=== PATIENT | female | born 1955 | race Caucasian/White ===

== ENCOUNTER 2017-03-02 17:43 | Emergency (ER) | payer OTHER ==
[2017-03-02 18:06] VITALS: BP 184/72
--- NOTE | 2017-03-02 18:39 | EDM.PDOC ---
ED HPI GENERAL MEDICAL PROBLEM - General Chief Complaint: Genitourinary Problem Stated Complaint: UNABLE TO URINATE Time Seen by Provider: 03/02/17 18:19 Source of Information: Reports: Patient, RN Notes Reviewed History Limitations: Reports: No Limitations - History of Present Illness INITIAL COMMENTS - FREE TEXT/NARRATIVE: 18.25 Drove herself Chief complaint Passing blood History of present illness 62-year-old female, works part-time on computer and part-time doing [email or web address] Has recently been traveling in [place] Yesterday evening noticed blood in the toilet bowl, only passing blood when she urinates, so she thinks the blood is from her urine and not the vagina, has had some bladder irritability symptoms. No history of UTI previously. Did feel hot and cold, no fever. New backache on the left side, it's more typical for her to have right-sided backache. Postmenopausal for 10 years Pelvic Pain Score (Numeric/FACES): 4 - Related Data Allergies Allergy/AdvReac Type Severity Reaction Status Date / Time acetaminophen [From Vicodin] Allergy Anxiety Verified 03/02/17 18:06 diazepam [From Valium] Allergy Anxiety Verified 03/02/17 18:06 hydrocodone [From Vicodin] Allergy Anxiety Verified 03/02/17 18:06 methylprednisolone Allergy Rash Verified 03/02/17 18:06 Penicillins Allergy Anaphylactic Verified 03/02/17 18:06 Shock Home Meds: Home Meds Diclofenac Epolamine [Flector] 1 patch TOP BID 01/17/16 [History] Fexofenadine [Chelsie] 30 mg PO DAILY 01/17/16 [History] Levothyroxine 75 mcg PO DAILY 01/17/16 [History] Losartan Potassium 100 mg PO DAILY 01/17/16 [History] traMADol [Ultram] 50 mg PO DAILY PRN 01/17/16 [History] Nitrofurantoin Monohyd/M-Cryst [Macrobid 100 mg Capsule] 100 mg PO BID #14 capsule 03/02/17 [Rx] Past Medical History HEENT History: Reports: Impaired Vision Cardiovascular History: Reports: Hypertension Respiratory History: Reports: Other (See Below) Other Respiratory History: seasonal allergies Musculoskeletal History: Reports: Back Pain, Chronic Endocrine/Metabolic History: Reports: Hyperthyroidism Other Endocrine/Metabolic History: THYROID "PROBLEM" - Past Surgical History Musculoskeletal Surgical History: Reports: Carpal Tunnel, Knee Replacement, Shoulder Surgery Other Musculoskeletal Surgeries/Procedures:: LAMINECTOMY L2,3,4,5 Social & Family History - Family History Cardiac: Reports: CAD - Tobacco Use Smoking Status *Q: Unknown Ever Smoked - Alcohol Use Days Per Week of Alcohol Use: 7 Number of Drinks Per Day: 2 Total Drinks Per Week: 14 - Recreational Drug Use Recreational Drug Use: No ED ROS GENERAL - Review of Systems Review Of Systems: See Below Constitutional: Reports: Chills (And hot). Denies: Fever, Decreased Appetite HEENT: Reports: No Symptoms Respiratory: Reports: No Symptoms Cardiovascular: Reports: No Symptoms GI/Abdominal: Reports: No Symptoms : Reports: Dysuria, Frequency, Hematuria, Urgency Musculoskeletal: Reports: Back Pain Skin: Reports: No Symptoms Neurological: Reports: No Symptoms Psychiatric: Reports: No Symptoms ED EXAM, RENAL/ - Physical Exam Exam: See Below Exam Limited By: No Limitations General Appearance: Alert, No Apparent Distress, Other (Elevated systolic blood pressure otherwise vital signs normal) Head: Atraumatic, Normocephalic Respiratory/Chest: No Respiratory Distress Cardiovascular: Regular Rate, Rhythm Back Exam: Normal Inspection, CVA Tenderness (R). No: CVA Tenderness (L), Vertebral Tenderness Neurological: Alert, Oriented, Normal Cognition Skin Exam: Normal Color Course - Vital Signs Last Recorded V/S: Last Vital Signs Temp 36.1 C 03/02/17 18:02 Pulse 66 03/02/17 18:02 Resp 15 03/02/17 18:02 BP 184/72 H 03/02/17 18:02 Pulse Ox 98 03/02/17 18:02 - Orders/Labs/Meds Labs: Laboratory Tests 03/02/17 Range/Units 18:41 Urine Color Yellow Urine Appearance Turbid Urine pH 5.0 (4.5-8.0) Ur Specific [place] 1.020 (1.008-1.030) Urine Protein 100 H (NEGATIVE) mg/dL Urine Glucose (UA) Normal (NEGATIVE) mg/dL Urine Ketones Negative (NEGATIVE) mg/dL Urine Occult Blood Large (NEGATIVE) Urine Nitrite Positive H (NEGATIVE) Urine Bilirubin Negative (NEGATIVE) Urine Urobilinogen 1 (NORMAL) mg/dL Ur Leukocyte Esterase Large (NEGATIVE) Urine RBC 50-75 H (0-5) Urine WBC 50-75 H (0-5) Ur Epithelial Cells Few Amorphous Sediment Few Urine Bacteria Many Urine Mucus Few - Re-Assessments/Exams Free Text/Narrative Re-Assessment/Exam: 03/02/17 18:39 62-year-old female with frequency urgency and hematuria. Urinalysis strongly supportive of urinary tract infection Macrobid 100 mg twice a day for 7 days 03/02/17 19:23 Departure - Departure Time of Disposition: 19:20 Disposition: Home, Self-Care 01 Condition: Good Clinical Impression: Cystitis with hematuria - Discharge Information Instructions: Urinary Tract Infection, Adult, [id number] Referrals: PCP,None [Primary Care Provider] - Forms: ED Department Discharge Additional Instructions: Get rechecked if not improving in 2-3 days, sooner if you develop high fever or repeated vomiting
== END 2017-03-02 19:34 | disposition home or self-care (01) ==
LOC: JP.ED 17:43
DX: N30.91 Cystitis, unspecified with hematuria (principal); I10 Essential (primary) hypertension; Z88.8 Allergy status to other drugs, medicaments and biological substances; Z88.0 Allergy status to penicillin; Z79.899 Other long term (current) drug therapy; E05.90 Thyrotoxicosis, unspecified without thyrotoxic crisis or storm
CPT/HCPCS: 81001; 99284

== ENCOUNTER 2020-02-03 16:02 | Emergency (ER) | payer OTHER ==
[2020-02-03 16:17] VITALS: BP 157/63; PULSE 72
--- NOTE | 2020-02-03 16:58 | EDM.PDOC ---
ED HPI GENERAL MEDICAL PROBLEM - General Chief Complaint: Lower Extremity Injury/Pain Stated Complaint: RT LEG PAIN Time Seen by Provider: 02/03/20 16:45 Source of Information: Reports: Patient, RN, RN Notes Reviewed History Limitations: Reports: No Limitations - History of Present Illness INITIAL COMMENTS - FREE TEXT/NARRATIVE: Patient here from out of town. She has chronic sciatic pain. She overdid it and now has increased pain including numbness. She contacted her provider in [place] but he is unable to prescribe in [place]. He directed her to the ER. She does states she has a pain contract with the provider. She states she uses Tylenol 3 and has not had any in quite some time. She states she is to have a fusion on return to [place]. Patient here with her symptoms and pain matches typical symptoms with L4-L5 sciatica pain. She denies saddle anesthesia. She denies any loss of bowel or bladder control. She is able to bear weight with some difficulty. She rates her pain at an 8 out of 10 until the shooting/stabbing pain and then it is a 10. Onset: Other (Chronic sciatic pain that she generally takes Tylenol for however has a pain contract for Tylenol 3 when the pain gets bad.) Onset Date: 02/03/20 (He had an exacerbation today at a family get together where she overdid it.) Onset Time: 15:00 Duration: Getting Worse Location: Reports: Lower Extremity, Right, Radiates to (Hip and to side of her knee) Quality: Reports: Sharp Severity: Severe Improves with: Reports: Rest Worsens with: Reports: Movement Context: Reports: Activity Associated Symptoms: Reports: No Other Symptoms Treatments [employer]: Reports: Acetaminophen Right Leg Pain Score (Numeric/FACES): 8 - Related Data Allergies Allergy/AdvReac Type Severity Reaction Status Date / Time acetaminophen [From Vicodin] Allergy Anxiety Verified 02/03/20 16:24 diazepam [From Valium] Allergy Anxiety Verified 02/03/20 16:24 hydrocodone [From Vicodin] Allergy Anxiety Verified 02/03/20 16:24 methylprednisolone Allergy Rash Verified 02/03/20 16:24 Penicillins Allergy Anaphylactic Verified 02/03/20 16:24 Shock Home Meds: Home Meds Losartan Potassium 100 mg PO DAILY 01/17/16 [History] Cetirizine [ZyrTEC] 10 mg PO DAILY 02/03/20 [History] Cholecalciferol (Vitamin D3) [Vitamin D] 1 tab PO DAILY 02/03/20 [History] Levothyroxine [Synthroid] 100 mcg PO ACBREAKFAST 02/03/20 [History] Multivitamin [Multi-Vitamin Daily] 1 tab PO DAILY 02/03/20 [History] Vitamin E (Dl,Tocopheryl Acet) [Vitamin E] 180 unit PO DAILY 02/03/20 [History] Past Medical History HEENT History: Reports: Impaired Vision Cardiovascular History: Reports: Hypertension Respiratory History: Reports: Other (See Below) Other Respiratory History: seasonal allergies Gastrointestinal History: Reports: None Musculoskeletal History: Reports: Back Pain, Chronic Endocrine/Metabolic History: Reports: Hyperthyroidism Other Endocrine/Metabolic History: THYROID "PROBLEM" Hematologic History: Reports: Other (See Below) Other Hematologic History: hemochromatosis - Past Surgical History Head Surgeries/Procedures: Reports: None HEENT Surgical History: Reports: None Cardiovascular Surgical History: Reports: None Respiratory Surgical History: Reports: None GI Surgical History: Reports: Cholecystectomy Endocrine Surgical History: Reports: None Musculoskeletal Surgical History: Reports: Carpal Tunnel, Knee Replacement, Shoulder Surgery Other Musculoskeletal Surgeries/Procedures:: LAMINECTOMY L2,3,4,5 Social & Family History - Family History Cardiac: Reports: CAD - Tobacco Use Smoking Status *Q: Never Smoker - Caffeine Use Caffeine Use: Reports: Coffee, Soda, Tea - Alcohol Use Days Per Week of Alcohol Use: 7 Number of Drinks Per Day: 2 Total Drinks Per Week: 14 - Recreational Drug Use Recreational Drug Use: No Review of Systems - Review of Systems Review Of Systems: See Below Constitutional: Reports: No Symptoms Respiratory: Reports: No Symptoms Cardiovascular: Reports: No Symptoms GI/Abdominal: Reports: No Symptoms Genitourinary: Reports: No Symptoms Musculoskeletal: Reports: Back Pain, Leg Pain, Joint Pain (Left sciatic pain rating from back down to the outer aspect of her knee) Skin: Reports: No Symptoms Neurological: Reports: Difficulty Walking (Due to pain) Psychiatric: Reports: No Symptoms ED EXAM, GENERAL - Physical Exam Exam: See Below Exam Limited By: No Limitations General Appearance: Alert, WD/WN, Moderate Distress Respiratory/Chest: No Respiratory Distress, Lungs Clear, Normal Breath Sounds Cardiovascular: Normal Peripheral Pulses, Regular Rate, Rhythm, No Edema Peripheral Pulses: 2+: Popliteal (L), Popliteal (R), Dorsalis Pedis (L), Dorsalis Pedis (R) GI/Abdominal: Normal Bowel Sounds, Soft, Non-Tender Extremities: Normal Inspection, No Pedal Edema, Normal Capillary Refill. No: Normal Range of Motion (Limited range of motion on right due to pain) Neurological: Alert, Oriented, Normal Cognition Psychiatric: Normal Affect, Normal Mood Skin Exam: Warm, Dry, Intact, Normal Color, No Rash Course - Vital Signs Last Recorded V/S: Last Vital Signs Temp 35.9 C L 02/03/20 16:24 Pulse 72 02/03/20 16:24 Resp 18 02/03/20 16:24 BP 157/63 H 02/03/20 16:24 Pulse Ox 97 02/03/20 16:24 - Re-Assessments/Exams Free Text/Narrative Re-Assessment/Exam: 02/03/20 17:17 Educated patient and and stretching exercises bringing [id number] with additional stretch provided by to allow her to stretch out the hip joint. Patient must be careful she does not push on her knee as this has been replaced. Additional pressure needs to be applied to the back of the thigh using alignment with the knee to the shoulder. was able to demonstrate this and patient did have some relief. PMPD review shows family physician provided RX to [facility] in [place]. Son is going to mail these to her. Will provider her #15 tablets to get her thru weekend and holiday. [facility] script dispensed. 02/03/20 17:29 02/03/20 17:35 Departure - Departure Time of Disposition: 17:57 Disposition: Home, Self-Care 01 Condition: Fair Clinical Impression: Sciatica - Discharge Information *PRESCRIPTION DRUG MONITORING PROGRAM REVIEWED*: Yes *COPY OF PRESCRIPTION DRUG MONITORING REPORT IN PATIENT GRETCHEN: No Instructions: Hip Pain, Sciatica, [id number] Referrals: PCP,None [Primary Care Provider] - Forms: ED Department Discharge Additional Instructions: Tylenol #3 provided #15 tabs for emergency use while away from home. No additional meds will be provided. Son is sending her RX from [place]. Do stretching exercises adapted to replaced knee to provide additional relief. Followup with provider in [place] upon return. Sepsis Event Note (ED) - Evaluation Sepsis Screening Result: No Definite Risk - Focused Exam Vital Signs: Vital Signs Temp Pulse Resp BP Pulse Ox 02/03/20 16:24 35.9 C L 72 18 157/63 H 97 02/03/20 16:16 35.9 C L 72 18 157/63 H 97 - Assessment/Plan Last 24 Hours: sciatica Assessment:: stated pain aligns with sciatica Plan: exacerbation of sciatic right side. Provided #15 tylenol #3 tabs as she waits for son to send script provided by her provider in [place].
== END 2020-02-03 17:58 | disposition home or self-care (01) ==
LOC: JP.ED 16:02
DX: M54.42 Lumbago with sciatica, left side (principal); M54.41 Lumbago with sciatica, right side; I10 Essential (primary) hypertension; Z88.0 Allergy status to penicillin; Z88.5 Allergy status to narcotic agent; Z88.8 Allergy status to other drugs, medicaments and biological substances
CPT/HCPCS: 99283